=== PATIENT | female | born 1970 | race American Indian/Alaskan Native ===

== ENCOUNTER 2020-07-05 14:20 | Outpatient (CLI) | payer BC ==
[2020-07-05 15:21] LABS: Basophils % (Auto) 0.4 % (0.0-1.8); Eosinophils # (Auto) 0.3 K/mm3 (0.0-0.4); Eosinophils % (Auto) 3.8 % (0.0-4.3); Hematocrit 37.8 % (30.3-42.9); Hemoglobin 12.5 gm/dl (10.1-14.3); Lymphocytes # (Auto) 2.4 K/mm3 (1.2-5.4); Lymphocytes % (Auto) 30.4 % (13.4-35.0); Mean Corpuscular HGB Conc 33 % (30-34); Mean Corpuscular Volume 86 fl (79-97); Monocytes # (Auto) 0.4 K/mm3 (0.0-0.8); Monocytes % (Auto) 4.4 % (0.0-7.3); Platelet Count 329 K/mm3 (140-440); Red Blood Count 4.38 M/mm3 (3.65-5.03); Red Cell Distribution Width 14.2 % (13.2-15.2)
[2020-07-05 15:39] LABS: % Iron Saturation 23.46 %
[2020-07-05 15:50] LABS: Chol/HDL Ratio 2.23 %
[2020-07-12 14:10] LABS: Vitamin D, 25-OH, D2 SEE SCANNED RESULT
== END 2020-07-05 14:21 | disposition home or self-care (01) ==
LOC: LAB 14:20
PROVIDERS: ATTEND Surgery
DX: Z00.00 Encounter for general adult medical examination without abnormal findings (principal); K30 Functional dyspepsia; D50.9 Iron deficiency anemia, unspecified; E61.8 Deficiency of other specified nutrient elements; E11.9 Type 2 diabetes mellitus without complications; E66.01 Morbid (severe) obesity due to excess calories
CPT/HCPCS: 36415; 80061; 82306; 82607; 82947; 83036; 83550; 84425; 85025

== ENCOUNTER → 2020-07-05 | Outpatient (CLI) | payer BC | END | disposition home or self-care (01) | LOC: SLR 11:00 | PROVIDERS: ATTEND Surgery | DX: G47.33 Obstructive sleep apnea (adult) (pediatric) (principal); R40.0 Somnolence; E66.9 Obesity, unspecified | CPT/HCPCS: G0399 ==

== ENCOUNTER 2020-07-23 11:24 | Outpatient (CLI) | payer BC ==
--- NOTE | 2020-07-23 14:10 | Fluoroscopy Report ---
UPPER GI HISTORY: GASTRO-ESOPHAGEAL REFLUX DISEASE WITHOUT ESOPHAGITIS. TECHNIQUE: Single and double contrast barium technique utilized to evaluate the esophagus, stomach, and duodenal C-loop. FINDINGS: To begin the exam, swallowing was evaluated in the lateral position under direct fluorosco py. Swallowing was normal. No mucosal irregularity, mass, mass effect, or critical stenosis. There were no abnormal tertiary c ontractions as seen with dysmotility. A small sliding hiatal hernia was witnessed during this exam. O ne episode of gastroesophageal reflux to the level of the clavicles was witnessed. Gastric sleeve surgical changes are noted and intact. No evidence for ulceration, extravasation or ob struction. The duodenal bulb and sweep are unremarkable. IMPRESSION: Small sliding hiatal hernia with evidence of gastroesophageal reflux as described. Stabl e appearance of the gastric sleeve surgical changes. Fluoroscopic time: 2.1 minutes Number of fluoroscopic images: 24 Signer Name: Sunny Patiño Jr, MD Signed: 07/23/2020 2:06 PM Workstation Name: [id number]
== END 2020-07-23 11:25 | disposition home or self-care (01) ==
LOC: PF 11:24
PROVIDERS: ATTEND Surgery
DX: K21.9 Gastro-esophageal reflux disease without esophagitis (principal); K44.9 Diaphragmatic hernia without obstruction or gangrene; E66.2 Morbid (severe) obesity with alveolar hypoventilation
CPT/HCPCS: 74246; 94010

== ENCOUNTER 2020-07-26 14:34 | Outpatient (CLI) | payer BC | END 2020-07-26 14:35 | disposition home or self-care (01) | LOC: SLR 14:34 | PROVIDERS: ATTEND Otolaryngology | DX: G47.33 Obstructive sleep apnea (adult) (pediatric) (principal) | CPT/HCPCS: 95811 ==

== ENCOUNTER 2020-09-25 06:44 | Day surgery (SDC) | payer BC ==
[2020-09-25] MEDS ORDERED: SODIUM CHLORIDE 0.9% 1000 ML 1,000 ML IV SCH (07:30)
--- NOTE | 2020-09-25 08:22 | Discharge Summary ---
Providers - Providers Date of Admission: 09/25/2020 Date of discharge: 09/25/20 Attending physician: MARTIN DAVENPORT MD Primary care physician: MILLICENT HOPE MD Hospitalization Reason for admission: EGD to work up GERD Condition: Good Procedures: EGD with biopsy Hospital course: Pt presented for EGD as part of work up for GERD. Procedure was uneventful and pt recovered well and was discharged to home. Disposition: DC-01 TO HOME OR SELFCARE Core Measure Documentation - Palliative Care Palliative Care/ Comfort Measures: Not Applicable - Core Measures Any of the following diagnoses?: none Exam - Physical Exam Narrative exam: unchanged from pre-op - Constitutional Vitals: Temp Pulse Resp BP Pulse Ox 98.4 F 72 16 102/62 98 09/25/20 07:59 09/25/20 07:59 09/25/20 07:59 09/25/20 07:59 09/25/20 07:59 Plan Activity: no restrictions Diet: low carbohydrate Follow up with: MILLICENT HOPE MD [Primary Care Provider] - 7 Days
--- NOTE | 2020-09-25 08:23 | Operative Report ---
Operative Report Operative Report: DATE: 09/25/2020 SURGERY: Upper endoscopy. SURGEON: Melanie Butt M.D. PROCEDURE: EGD with biopsy PRE OP DX: morbid obesity, GERD POST OP DX: morbid obesity, GERD TYPE OF ANESTHESIA: MAC. ESTIMATED BLOOD LOSS: None. COMPLICATIONS: None. SPECIMENS REMOVED: antral biopsy FINDINGS: 1. Small hiatal hernia. 2. 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 She has a history of gastric sleeve and is here to have EGD as part of work up for gastro-esophageal reflux PROCEDURE DETAILS: After consent was reviewed, patient was taken back to the operating room where patient was placed in the left lateral decubitus position and a bite block was placed in the mouth. After a time-out was called, MAC anesthesia was initiated. I then passed the endoscope into her oropharynx, into her esophagus, visualized the entire esophagus, which was all within normal limits. Z-line was noted to about 35cm from incisors. I then visualized the stomach and the first portion of the duodenum and there were no abnormalities I could clearly visualize. The stomach was appropriately narrowed consistent with a previous sleeved stomach. There were no acute narrowings that were pathologic. A cold forceps biopsy of the antrum was taken and will be sent to pathology to evaluate for H.pylori. I could not retroflex the scope due to the narrowed stomach however there was about a 2cm distance between the z-line and diaphragmatic notch c/w small hiatal hernia. I then desufflated the stomach and removed the endoscope. Patient tolerated procedure well and was transferred to recovery room in good and stable condition.
[2020-09-25] MEDS ORDERED: LIDOCAINE MPF (2%) 20 MG/1 ML VIAL 5 ML ONE (08:32)
[2020-09-25] MEDS ORDERED: propofoL 200 MG/20 ML VIAL IV ONE (08:33)
[2020-09-25 09:30] VITALS: BP 117/76
--- NOTE | 2020-09-25 13:17 | Anesthesia Day of Surgery ---
Anesthesia Day of Surgery - Day of Surgery Patient Examined: Yes Patient H&P Reviewed: Yes Patient is NPO: Yes
--- NOTE | 2020-09-25 13:17 | Post Anesthesia Evaluation ---
- Post Anesthesia Evaluation Patient Participated: Yes Airway Patent: Yes Stable Respiratory Function: Yes Nausea/Vomiting: No Temp > 96.8F: Yes Pain Manageable: Yes Adequeate Hydration: Yes Anesthesia Complications: No
--- NOTE | 2020-09-25 13:17 | Anesthesia Consultation ---
Anesthesia Consult and Med Hx Date of service: 09/25/20 - Airway Anesthetic Teeth Evaluation: Good ROM Head & Neck: Adequate Mental/Hyoid Distance: Adequate Mallampati Class: Class I Intubation Access Assessment: Good - Pulmonary Exam CTA: Yes - Cardiac Exam Cardiac Exam: RRR - Pre-Operative Health Status ASA Pre-Surgery Classification: ASA3 Proposed Anesthetic Plan: MAC - Pulmonary Hx Respiratory Symptoms: Yes (chronic dyspnea since URI 09/2019; albuterol prn. Pulm eval ongoing.) SOB: Yes Home Oxygen Therapy: No Hx Sleep Apnea: Yes (compliant with CPAP) - Cardiovascular System Hx Hypertension: No - Central Nervous System CVA: No - Endocrine Hx Renal Disease: No Hx Liver Disease: No Hx Insulin Dependent Diabetes: No Hx Non-Insulin Dependent Diabetes: No Hx Thyroid Disease: No - Other Systems Hx Obesity: Yes (BMI 41)
== END 2020-09-25 06:45 | disposition home or self-care (01) ==
LOC: GIO 06:44
PROVIDERS: ATTEND Surgery
DX: K21.00 Gastro-esophageal reflux disease with esophagitis, without bleeding (principal); E66.01 Morbid (severe) obesity due to excess calories; K29.50 Unspecified chronic gastritis without bleeding; K44.9 Diaphragmatic hernia without obstruction or gangrene; B96.81 Helicobacter pylori [H. pylori] as the cause of diseases classified elsewhere; G47.30 Sleep apnea, unspecified; M19.90 Unspecified osteoarthritis, unspecified site; F32.9 Major depressive disorder, single episode, unspecified; F41.9 Anxiety disorder, unspecified; Z90.49 Acquired absence of other specified parts of digestive tract; Z79.899 Other long term (current) drug therapy; Z90.710 Acquired absence of both cervix and uterus; Z98.890 Other specified postprocedural states; Z68.41 Body mass index [BMI] 40.0-44.9, adult
CPT/HCPCS: 43239; 88305; 88342; J2704; J7030

== ENCOUNTER 2021-03-25 06:10 | Inpatient (IN) | payer BC ==
[2021-03-20 14:03] LABS: Hematocrit 38.7 % (30.3-42.9); Hemoglobin 13.1 gm/dl (10.1-14.3); Mean Corpuscular HGB Conc 34 % (30-34); Mean Corpuscular Volume 87 fl (79-97); Platelet Count 384 K/mm3 (140-440); Red Blood Count 4.44 M/mm3 (3.65-5.03); Red Cell Distribution Width 13.5 % (13.2-15.2)
--- NOTE | 2021-03-20 14:25 | Anesthesia Consultation ---
Anesthesia Consult and Med Hx Date of service: 03/25/21 - Airway Anesthetic Teeth Evaluation: Crowns ROM Head & Neck: Adequate Mental/Hyoid Distance: Adequate Mallampati Class: Class II Intubation Access Assessment: Good - Pre-Operative Health Status ASA Pre-Surgery Classification: ASA3 Proposed Anesthetic Plan: General - Pulmonary Hx Smoking: No Hx Respiratory Symptoms: Yes (chronic dyspnea since URI 09/2019; albuterol prn. Pulm eval ongoing.) SOB: Yes (Uses inhaler on schedule) Hx Sleep Apnea: Yes (CPAP) - Cardiovascular System Hx Hypertension: No - Central Nervous System CVA: No Hx Psychiatric Problems: Yes (Anxiety/Depression) - Gastrointestinal Hx Gastroesophageal Reflux Disease: Yes (Severe) - Endocrine Hx Renal Disease: No Hx Liver Disease: No Hx Insulin Dependent Diabetes: No Hx Non-Insulin Dependent Diabetes: No Hx Thyroid Disease: No - Other Systems Hx Alcohol Use: Yes (Occas) Hx Cancer: No Hx Obesity: Yes (BMI 41) - Additional Comments Anesthesia Medical History Comments: Pt reports negative cardiac workup. There are no cardiac/pulm/other records available at this PAT visit.
[2021-03-20 15:04] LABS: Alanine Aminotransferase 9 units/L (7-56); Albumin 4.6 g/dL (3.9-5); Blood Urea Nitrogen 9 mg/dL (7-17); Calcium 9.8 mg/dL (8.4-10.2); Hemolysis Index 14
[2021-03-20 15:05] LABS: BUN/Creatinine Ratio 13
[~2021-03-25 06:10] MED LIST: ACETAMINOPHEN IV 1,000 MG/100 ML BOTTLE IV NR; ENOXAPARIN 40 MG/0.4 ML INJ SUB-Q NR; FAMOTIDINE 20 MG/2 ML INJ IV SCH; METOCLOPRAMIDE 10 MG/2 ML INJ IV NR; MIDAZOLAM 2 MG/2 ML INJ IV NR; metroNIDAZOLE/NS 500 MG/100 ML 500 MG/100 ML BAG IV NR
[2021-03-25] MEDS ORDERED: SCOPOLAMINE TRANSDERMAL PATCH 72 HR TD ONE (06:19)
[2021-03-25] MEDS ORDERED: BACTERIOSTATIC SODIUM CHLORIDE 0.9% 30 ML VIAL INFILTRATI ONE (06:44)
[2021-03-25] MEDS: SCOPOLAMINE TRANSDERMAL PATCH 72 HR TD SCH ×2 (07:00→21:06)
[2021-03-25] MEDS ORDERED: LIDOCAINE 1%/EPINEPHRINE 1:100,000 VIAL (20 ML) INFILTRATI ONE ×2 (07:16→08:44)
[2021-03-25] MEDS ORDERED: BUPIVACAINE/PF (0.25%) 2.5 MG/ML 30 ML VIAL INFILTRATI ONE ×2 (07:16→08:43)
[2021-03-25] MEDS: LACTATED RINGERS 1,000 ML IV SCH (07:20)
[2021-03-25] MEDS ORDERED: MAGNESIUM SULFATE 2 GM/50 ML BAG IV ONE (07:30)
[2021-03-25] MEDS ORDERED: SUGAMMADEX SODIUM 200 MG/2 ML VIAL IV ONE (07:30)
--- NOTE | 2021-03-25 07:32 | Anesthesia Day of Surgery ---
Anesthesia Day of Surgery - Day of Surgery Patient Examined: Yes Patient H&P Reviewed: Yes Patient is NPO: Yes
[2021-03-25] MEDS ORDERED: KETAMINE/STERILE WATER 50 MG/ML SYRINGE ONE (07:34)
[2021-03-25] MEDS ORDERED: LIDOCAINE MPF (2%) 20 MG/1 ML VIAL 5 ML ONE ×3 (07:34→07:39)
[2021-03-25] MEDS ORDERED: ROCURONIUM 50 MG/5 ML INJ IV ONE ×2 (07:34→10:06)
[2021-03-25] MEDS ORDERED: SODIUM CHLORIDE P/F VIAL 10 ML 10 ML ONE (07:35)
[2021-03-25] MEDS ORDERED: ONDANSETRON 4 MG/2 ML INJ IV PRN ×2 (08:00→10:39)
[2021-03-25] MEDS ORDERED: fentaNYL 100 MCG/2 ML INJ IV PRN (08:00)
[2021-03-25] MEDS ORDERED: dexAMETHasone 20 MG/5 ML VIAL ONE (08:43)
[2021-03-25] MEDS ORDERED: SODIUM CHLORIDE 0.9% IRRIG SOLN 2000 ML IR ONE (08:44)
[2021-03-25] MEDS ORDERED: SODIUM CHLORIDE 0.9% IRR 1,500 ML BOTTLE IR ONE (08:45)
[2021-03-25] MEDS ORDERED: LACTATED RINGERS 1,000 ML ONE (10:05)
[2021-03-25] MEDS ORDERED: METOCLOPRAMIDE 10 MG/2 ML INJ IV PRN (10:39)
[2021-03-25] MEDS ORDERED: hydrALAZINE 20 MG/1 ML INJ IV PRN (10:39)
[2021-03-25] MEDS ORDERED: HYDROcodone/Acetaminophen 7.5-325MG-15ML ORAL LIQD PO PRN (10:39)
[2021-03-25] MEDS ORDERED: SIMETHICONE 80 MG CHEW TAB PO PRN (10:39)
[2021-03-25] MEDS ORDERED: LACTATED RINGERS 1,000 ML IV SCH (10:45)
--- NOTE | 2021-03-25 10:52 | Operative Report ---
Operative Report Operative Report: DATE OF PROCEDURE: 03/25/2021 SURGEON: Melanie Butt MD GEM STONE CUTTER: Harriett Norris CSA MD PREOPERATIVE DIAGNOSIS: GERD, morbid obesity, hx of gastric sleeve POSTOPERATIVE DIAGNOSES: same as pre-op PROCEDURES PERFORMED: 1. Laparoscopic conversion of gastric sleeve to gastric bypass. 2. Hiatal hernia repair 3. EGD. ANESTHESIA: General endotracheal tube intubation, local SPECIMENS: None. ESTIMATED BLOOD LOSS: Less than 10 mL. FINDINGS: Previous gastric sleeve and hiatal hernia COMPLICATIONS: None. INDICATION: Mrs. Arredondo is a 50-year-old female with history of gastric sleeve about 9 years ago. She has been having worsening gastroesophageal reflux. Patient had an EGD that showed H. pylori which was treated, and she had over 6 months of PPI therapy with minimal relief. She had an upper GI that showed a small hiatal hernia and gastroesophageal reflux of the level of the clavicles. Patient is here today for conversion of her gastric sleeve to gastric bypass. She signed informed consent and expressed understanding of risks and benefits. DESCRIPTION OF PROCEDURE: Patient was brought to the OR suite, laid in supine position. Bilateral lower extremity SCDs were placed. General anesthesia was induced via successful endotracheal tube intubation. Patient's abdomen was prepped and draped in sterile fashion. A veress needle was used to insuflate the abdomen to a pressure of 15mmHg via a stab incision in the left subcostal area. Using Optiview technique, a 5-mm trocar was placed into the abdominal cavity under direct vision. There was noted to be no gross injury to any intraabdominal structures. 4 working trocars were placed under direct visualization, 12 mm in the right mid abdomen mid clavicular line and three 5-mm trocars in the right upper quadrant, epigastric, left upper quadrant. At this time, the ligament of Treitz identified and followed down approximately 40 cm and the jejunum was transected. The distal segment of jejunum was then traced for approximately 75 cm and a stapled [id number] jejunojejunostomy was performed. The common enterotomy was closed with 2 firings of the endoscopic stapler. The mesenteric defect was closed with running non-absorbable v-loc suture. This anastomosis was found to be patent without kink, obstruction or bleeding. At this time, the patient was placed in steep reverse Trendelenburg position. A liver retractor was placed through the epigastric port to elevate the left lateral lobe of the liver. Perigastric adhesions were taken down from the lateral edge of her gastric sleeve. [address] that were in the zone for creating a pouch were removed. A small gastric pouch was formed measuring about 4cm from the hiatus with serial firings of a green followed by blue load, after a retrogastric tunnel was created. Great care was taken to preserve the blood supply. There was noted to be a hiatal hernia defect through which the proximal gastric pouch was herniating above the level of the diaphragm. The left and right crura were skeletonized, and the sac attachments released until the gastric pouch rested in the abdominal cavity without tension for about 2cm. An anterior cruraplasty was performed with a U-stitch using surgidac suture. The Rand limb was then brought in an antegastric antecolic fashion and secured with 2 stay sutures to the gastric pouch. After this, the enterotomies were made with Harmonic scalpel, and a [id number] stapled gastrojejunostomy was performed with a mechanical stapler. With a common anastamosis measuring about 20mm. After this, a 2-layer running closure using absorbable v-loc suture was done. The first being mucosal approximation. Prior to completion of the first layer, I passed an EGD scope beyond the anastomosis to act as a stent. The first layer was completed, the second was then performed. After this, the EGD was retracted slightly. A bowel clamp was placed on the proximal Rand limb. The anastomosis was submerged under saline. Via intraluminal EGD insufflation, there was noted be no bubbles in the saline indicating an air tight anastomosis. There was noted to be no obstruction or bleeding intraluminally in the pouch or the anastomosis. At this time, the scope was removed. The saline was aspirated. Tiseel was placed over the anastomosis. All trocars were removed under direct visualization and the abdomen was then desufflated. The 12mm trocars were closed at the fascial layer with #1 PDS using a suture passer device. The skin incisions were closed with 4-0 Monocryl followed by Dermabond dressings. Patient was awoken and taken to recovery in stable condition. All counts were correct. Lidocaine and Marcaine were injected at all incision sites.
[2021-03-25] MEDS: KETOROLAC 30 MG/1 ML INJ IV SCH ×3 (11:52→22:15)
[2021-03-25] MEDS: ACETAMINOPHEN IV 1,000 MG/100 ML BOTTLE IV SCH ×2 (13:25→21:05)
[2021-03-25] MEDS: MORPHINE 2 MG/1 ML INJ IV PRN ×2 (15:02→19:58)
[2021-03-25] MEDS: metroNIDAZOLE/NS 500 MG/100 ML 500 MG/100 ML BAG IV SCH (16:35)
[2021-03-25] MEDS: ceFAZolin/NS 1 GM/50 ML 1 GM/50 ML BAG IV SCH (18:00)
[2021-03-26] MEDS: MORPHINE 2 MG/1 ML INJ IV PRN (01:01)
[2021-03-26] MEDS: ACETAMINOPHEN IV 1,000 MG/100 ML BOTTLE IV SCH ×2 (01:02→07:01)
[2021-03-26] MEDS: LACTATED RINGERS 1,000 ML IV SCH (01:03)
[2021-03-26] MEDS: ceFAZolin/NS 1 GM/50 ML 1 GM/50 ML BAG IV SCH (01:06)
[2021-03-26] MEDS: metroNIDAZOLE/NS 500 MG/100 ML 500 MG/100 ML BAG IV SCH ×2 (01:17→09:21)
[2021-03-26] MEDS: KETOROLAC 30 MG/1 ML INJ IV SCH ×3 (05:47→17:11)
--- OUTSIDE RECORDS SUMMARY | 2021-03-26 06:52 | External Medical Summary ---
:1970 Author Organization [facility], [facility] Address [address] [place] [address] Care Team Providers Name Role Phone Melanie Butt Unavailable [phone] PROBLEMS Type Condition ICD9-CM [id number] Onset Condition W/U Status Risk SNOM ED Notes Code Code Dates Status Code Problem Unspecified M19.90 Active confirmed 52569354 6 osteoarthriti s, unspecified site Problem Bariatric Z98.84 Active confirmed 692257973 surgery status Problem Body mass Z68.41 Active confirmed 518402520 index (BMI) 40.0-44.9, adult Problem Gastro-esopha K21.9 Active confirmed 189777 005 geal reflux disease without esophagitis Problem Anxiety F41.9 Active confirmed 225563200 disorder, unspecified Problem Morbid E66.01 Active confirmed 414425317 (severe) obesity due to excess calories Problem Other F32.89 Active confirmed 061388515 specified depressive episodes ALLERGIES No Known Allergies ENCOUNTERS from 1970 to 2021-03-22 Encounter Location Date Provider Diagnosis [facility] [address] [place], Melanie Butt Morbi d (severe) [address] [place] obesity due to excess of [place], [place] calorie s E66.01 ; [address] Gastro-esophage al reflux disease without esophagitis K21 .9 ; Unspecified osteoarthritis, unspecified sit e M19.90 and Matt atric surgery status Z98.84 IMMUNIZATIONS No Information SOCIAL HISTORY Sex Assigned At : Social History Observation Description Sex Assigned At Unknown REASON FOR REFERRAL from 1970 to 2021-03-22 Diagnosis 1 Gastro-esophageal reflux dis ease without esophagitis (K21.9) Diagnosis 2 Morbid (severe) obesity due to excess calories (E66.01) Diagnosis 3 Unspecified osteoarthritis, unspecified site (M19.90) Diagnosis 4 Bariatric surgery status (Z9 8.84) Diagnosis 5 Other specified depressive e pisodes (F32.89) Diagnosis 6 Body mass index (BMI) 40.0-4 4.9, adult (Z68.41) Diagnosis 7 Anxiety disorder, unspecifie d (F41.9) Diagnosis 8 Shortness of breath (R06.02) Referral Organization [facility] Referring Provider First Name Melanie Referring Provider Last Name Filomena Referring Provider Specialty Surgery Referred Provider [facility], - Referral Priority Routine VITAL SIGNS Height 64 in Mar, Weight 235.6 lbs Mar, Temperature error degrees Fahrenheit Mar, BMI 40.3 kg/m2 Mar, Blood pressure systolic 112 mm Hg Mar, Blood pressure diastolic 78 mm Hg Mar, MEDICATIONS Medication SIG (Take, Route, Notes Start Date End Date Status Frequency, Duration) NexIUM 40 MG 1 packet mixed with 15 Aug, Active ml of water Orally Once a day for 30 day(s) Omeprazole 40 MG 1 capsule 30 minutes Mar, Active before morning meal Orally Once a day for 30 day(s) Fluconazole 200 MG 1 tablet Orally repeat Nov, Active if needed in one week ALPRAZolam 0.25 MG 1 tablet Orally Twice Active a day Zofran 4 MG 1-2 tablet Orally Q Mar, Ac tive 4-6 HRS PRN NAUSEA for 30 day(s) HYDROcodone-Acetaminophe 15 ml as needed Orally Mar, 21 Mar, Active n 7.5-325 MG/15ML every 6 hrs for 7 days Esomeprazole Magnesium 1 capsule bid Once a Oct, Active 20 MG day for 14 days PROCEDURES No Information RESULTS No Results REASON FOR VISIT PreOp Bypass MEDICAL (GENERAL) HISTORY Type Description Date Medical History Morbid (severe) obesity due to excess ca lories Medical History Gastro-esophageal reflux disease without esophagitis Medical History Anxiety disorder, unspecified Medical History Unspecified osteoarthritis, unspecified site Medical History Other specified depressive episodes Surgical History Cholecystectomy 2003 Surgical History Gastric Sleeve 2011 Surgical History Hysterectomy 2014 Surgical History Tummy [place] 2014 Hospitalization History as above Goals Section No Information Health Concerns No Information MEDICAL EQUIPMENT No Information MENTAL STATUS No Information FUNCTIONAL STATUS No Information ASSESSMENTS Encounter Date Diagnosis Assessment Notes Treatment Notes Treatm ent Clinical Notes Mar, Morbid (severe) will be easier to obesity due to manage after gastric excess calories bypass (ICD-10 - E66.01) Mar, Gastro-esophageal should improve or reflux disease resolve after without conversion to esophagitis gastric bypass (ICD-10 - K21.9) Mar, Unspecified should improve with osteoarthritis, weight loss unspecified site (ICD-10 - M19.90) Mar, Bariatric surgery Discussed risks and status (ICD-10 - benfits of Z98.84) conversion of gastric sleeve to gastric bypass. Spent about 45 minutes going over possible post op complications and appropriate post op care. She expressed understanding. PLAN OF TREATMENT Medication Medication Name Sig Start Date Stop Date HYDROcodone-Acetaminophen 15 ml as needed Orally every 16 Mar, 2 021 23 Mar, 2021 7.5-325 MG/15ML 6 hrs for 7 days Zofran 4 MG 1-2 tablet Orally Q 4-6 HRS Mar, PRN NAUSEA for 30 day(s) Omeprazole 40 MG 1 capsule 30 minutes before Mar, morning meal Orally Once a day for 30 day(s) Treatment Notes Assessment Notes Clinical Notes Morbid (severe) obesity due to will be easier to manage afte r excess calories gastric bypass Gastro-esophageal reflux disease should improve or resolve a fter without esophagitis conversion to gastric bypass Unspecified osteoarthritis, should improve with weight loss unspecified site Bariatric surgery status Discussed risks and benfits of conversion of gastric sleeve to gastric bypass. Spent about 45 minutes going over possible post op complications and appropriate post op care. She expressed understanding. Referrals Referral Date Details Next Appt Details for surgery Reason: Provider Name:Melanie Butt, 2021-03-06 1 08:00:00 AM, [address] , [place], [place], [phone], Insurance Providers Payer Name Payer Address Payer Insured Name Patient Coverage Co verage End Phone Relationship to Start Date Allen e Insured [employer] [facility] [address] [phone] Rebecca Arredondo [facility] [id number]
[2021-03-26] MEDS ORDERED: ENOXAPARIN 40 MG/0.4 ML INJ SUB-Q SCH (10:00)
[2021-03-26] MEDS ORDERED: PANTOPRAZOLE 40 MG INJ IV SCH (10:00)
[2021-03-26 11:46] LABS: Alanine Aminotransferase 17 units/L (7-56); Albumin 3.9 g/dL (3.9-5); BUN/Creatinine Ratio 6; Blood Urea Nitrogen 5 mg/dL (7-17); Hemolysis Index 1
[2021-03-26 12:28] LABS: Basophils # (Auto) 0.1 K/mm3 (0.0-0.1); Basophils % (Auto) 0.7 % (0.0-1.8); Eosinophils % (Auto) 0.2 % (0.0-4.3); Hematocrit 35.6 % (30.3-42.9); Hemoglobin 12.1 gm/dl (10.1-14.3); Lymphocytes # (Auto) 2.4 K/mm3 (1.2-5.4); Lymphocytes % (Auto) 20.1 % (13.4-35.0); Mean Corpuscular HGB Conc 34 % (30-34); Mean Corpuscular Volume 87 fl (79-97); Monocytes # (Auto) 0.7 K/mm3 (0.0-0.8); Monocytes % (Auto) 5.7 % (0.0-7.3); Platelet Count 368 K/mm3 (140-440); Red Blood Count 4.09 M/mm3 (3.65-5.03); Red Cell Distribution Width 13.9 % (13.2-15.2)
--- NOTE | 2021-03-26 15:02 | Post Anesthesia Evaluation ---
- Post Anesthesia Evaluation Patient Participated: Yes Airway Patent: Yes Stable Respiratory Function: Yes Nausea/Vomiting: No Temp > 96.8F: Yes Pain Manageable: Yes Adequeate Hydration: Yes Anesthesia Complications: No Block Receding Appropriately: Not Applicable Patient on Ventilator: No Other Comments: Patient denies awareness during the anesthetic.
[2021-03-26 16:09] VITALS: BP 120/65
--- NOTE | 2021-03-26 19:05 | Discharge Summary ---
Providers - Providers Date of Admission: 03/25/21 06:10 Date of discharge: 03/26/21 Attending physician: MARTIN DVAENPORT MD 03/25/21 10:39 Physical Therapy Evaluation and Treat [CONS] Routine Comment: Reason For Exam: post op bariatric surgery Primary care physician: MILLICENT HOPE MD Hospitalization Reason for admission: s/p conversion of gastric sleeve to gastric bypass Condition: Good Procedures: lap gastric sleeve conversion to gastric bypass and hiatal hernia repair Hospital course: Patient had an uneventful postop course status post conversion of gastric sleeve to gastric bypass. Patient was tolerating liquids with good pain control was ambulating well. Patient was showing no clinical signs of leak or bleeding at the time of discharge. Disposition: TO HOME OR SELFCARE Final Discharge Diagnosis (Prints w/discharge instructions): GERD, morbid obesity Core Measure Documentation - Palliative Care Palliative Care/ Comfort Measures: Not Applicable - Core Measures Any of the following diagnoses?: none Exam - Constitutional Vitals: Temp Pulse Resp BP Pulse Ox 98.2 F 74 16 120/65 93 03/26/21 16:04 03/26/21 16:04 03/26/21 16:04 03/26/21 16:04 03/26/21 16:04 General appearance: Present: no acute distress, obese - Respiratory Respiratory effort: normal - Cardiovascular Heart Sounds: Present: S1 & S2 - Extremities Extremities: no ischemia - Abdominal General gastrointestinal: Present: other (soft, incisions c/d/i, appropriately tender to palpation) Plan Activity: advance as tolerated Diet: clear liquids Wound: open to air, keep clean and dry Follow up with: MILLICENT HOPE MD [Primary Care Provider] - 7 Days
== END 2021-03-26 19:11 | disposition home or self-care (01) | DRG 621 ==
LOC: 3A 06:10 → 3B-SURG 16:33
PROVIDERS: ADMIT Surgery; ATTEND Surgery
PROC: 0D164ZA Bypass Stomach to Jejunum, Percutaneous Endoscopic Approach (ICD-10-PCS; principal; 2021-03-25)
PROC: 0D768ZZ Dilation of Stomach, Via Natural or Artificial Opening Endoscopic (ICD-10-PCS; 2021-03-25)
PROC: 0D7A8ZZ Dilation of Jejunum, Via Natural or Artificial Opening Endoscopic (ICD-10-PCS; 2021-03-25)
PROC: 0BQT4ZZ Repair Diaphragm, Percutaneous Endoscopic Approach (ICD-10-PCS; 2021-03-25)
DX: E66.01 Morbid (severe) obesity due to excess calories (principal); K21.9 Gastro-esophageal reflux disease without esophagitis; Z68.41 Body mass index [BMI] 40.0-44.9, adult; K44.9 Diaphragmatic hernia without obstruction or gangrene; F41.9 Anxiety disorder, unspecified; F32.9 Major depressive disorder, single episode, unspecified; Z98.84 Bariatric surgery status; M19.90 Unspecified osteoarthritis, unspecified site; Z90.49 Acquired absence of other specified parts of digestive tract; Z90.710 Acquired absence of both cervix and uterus
CPT/HCPCS: 36415; 80053; 85025; 85027; G0378; A4217; C9113; C9250; J0131; J0690; J1100; J1650; J1885; J2250; J2270; J2704; J2765; J3010; J3475; J3490; J7120; U0003